=== PATIENT | female | born 1975 | race Caucasian/White ===

== ENCOUNTER 2017-06-18 16:13 | Day surgery (SDC) | payer OTHER ==
[~2017-06-18] VITALS: Ht 154.9 cm; Wt 53.4 kg
[2017-06-18] MEDS ORDERED: LACTATED RINGERS 1,000 ML IV SCH (16:28)
[2017-06-18 16:41] VITALS: BP 138/88
[2017-06-18] MEDS ORDERED: PLEASE ENTER HEIGHT AND WEIGHT MC SCH (17:00)
[2017-06-18] MEDS ORDERED: [UNRECOGNIZED DRUG - REMARK] (17:08)
[2017-06-18] MEDS ORDERED: prenatal vitamin (17:08)
[2017-06-18 17:10] LABS: HEMOGLOBIN 14.5 g/dL (11.7-16.4); WHITE BLOOD COUNT 7.6 x10^3/uL (3.4-10)
[2017-06-18] MEDS ORDERED: MIDAZOLAM 1 MG/ML, 2ML ONE (17:38)
[2017-06-18] MEDS ORDERED: FENTANYL PF 250 MCG/5ML ONE (17:39)
[2017-06-18] MEDS ORDERED: SILVER NITRATE STICK TP ONE (17:40)
[2017-06-18] MEDS ORDERED: OXYTOCIN 10 UNITS/ML, 1ML ONE (17:40)
[2017-06-18] MEDS ORDERED: METHYLERGONOVINE 0.2 MG/ML IM ONE (17:40)
[2017-06-18] MEDS ORDERED: MISOPROSTOL 200 MCG TABLET ONE (17:40)
[2017-06-18] MEDS ORDERED: ONDANSETRON 2MG/ML, 2ML ONE (17:46)
[2017-06-18] MEDS ORDERED: CEFAZOLIN 1,000 MG ONE (17:46)
[2017-06-18] MEDS ORDERED: DEXAMETHASONE 4 MG/ML, 1ML ONE (17:46)
[2017-06-18] MEDS ORDERED: PROPOFOL 10 MG/ML, 20ML ONE (17:46)
[2017-06-18] MEDS ORDERED: LIDOCAINE GEL 2%, 5ML ONE (17:47)
[2017-06-18] MEDS ORDERED: PHENYLEPHRINE 10 MG/ML ONE (17:53)
[2017-06-18] MEDS ORDERED: OXYcodone 5 MG/5 ML ORAL.SOL UDC PO PRN (18:00)
[2017-06-18] MEDS ORDERED: PROMETHAZINE 25 MG/ML, 1ML IV PRN (18:00)
[2017-06-18] MEDS ORDERED: ACETAMINOPHEN 325 MG TABLET PO PRN (18:00)
[2017-06-18] MEDS ORDERED: HYDROcodone/APAP 7.5-325MG/15ML UDC PO PRN (18:00)
[2017-06-18] MEDS ORDERED: ONDANSETRON 2MG/ML, 2ML IVPush PRN (18:00)
[2017-06-18] MEDS ORDERED: MEPERIDINE/PF 25MG/0.5ML IVPush PRN (18:00)
[2017-06-18] MEDS ORDERED: HYDROmorphone 1 MG/ML, 1ML IV PRN (18:00)
[2017-06-18] MEDS ORDERED: MIDAZOLAM 1 MG/ML, 2ML IV PRN (18:00)
[2017-06-18] MEDS ORDERED: FENTANYL PF 100 MCG/2ML IV PRN (18:00)
[2017-06-18] MEDS ORDERED: KETOROLAC 30 MG/1 ML ONE (18:41)
[2017-06-18] MEDS ORDERED: KETOROLAC 30 MG/1 ML IVPush ONE (19:00)
[2017-06-18] MEDS ORDERED: IBUP200T48 PO (21:58)
[2017-06-18] MEDS ORDERED: OXYC-302 PO (21:59)
== END 2017-06-18 22:20 | disposition home or self-care (01) ==
LOC: OR 16:13 → 4NOR 19:45 → OR 22:20
PROVIDERS: ATTEND Obstetrics & Gynecology
DX: O02.1 Missed abortion (principal); Z3A.01 Less than 8 weeks gestation of pregnancy; Z88.0 Allergy status to penicillin; Z98.890 Other specified postprocedural states
CPT/HCPCS: 36415; 59820; 85025; 86850; 86900; 88305; J0690; J1100; J1885; J2210; J2250; J2370; J2405; J2704; J3010; J2590

== ENCOUNTER 2018-06-14 20:26 | Outpatient (CLI) | payer OTHER ==
[~2018-06-14] VITALS: Ht 154.9 cm; Wt 61.4 kg
[~2018-06-14 20:26] MED LIST: IBUP200T49 PO; OXYC-302 PO; [UNRECOGNIZED DRUG - REMARK]; prenatal vitamin
[2018-06-14] MEDS ORDERED: DIPHENHYDRAMINE 25 MG CAPSULE ONE (21:21)
[2018-06-14] MEDS ORDERED: ACETAMINOPHEN 325 MG TABLET ONE (21:21)
[2018-06-14] MEDS ORDERED: DIPHENHYDRAMINE 25 MG CAPSULE PO PRN (21:30)
[2018-06-14] MEDS ORDERED: ACETAMINOPHEN 325 MG TABLET PO ONE (21:30)
[2018-06-14 21:52] VITALS: BP 123/82
== END 2018-06-14 21:30 | disposition home or self-care (01) ==
LOC: LDOP 20:26
PROVIDERS: ATTEND Obstetrics & Gynecology
DX: O26.893 Other specified pregnancy related conditions, third trimester (principal); Z3A.38 38 weeks gestation of pregnancy; R10.9 Unspecified abdominal pain
CPT/HCPCS: 59025; 99211; Q0163; G0463

== ENCOUNTER 2018-06-21 05:44 | Inpatient (IN) | payer OTHER ==
[~2018-06-21] VITALS: Ht 154.9 cm; Wt 62.3 kg
[2018-06-21 06:00] VITALS: BP 135/80
[2018-06-21] MEDS ORDERED: D5%-LACTATED RINGERS 1,000 ML IV SCH (06:12)
[2018-06-21] MEDS ORDERED: OXYTOCIN 30U/ 0.9% NaCL 500ML 500 ML IV ONE (06:12)
[2018-06-21] MEDS ORDERED: NEWBORN KIT ONE (06:18)
[2018-06-21] MEDS ORDERED: METOCLOPRAMIDE 5 MG/ML, 2ML IVPush PRN (06:30)
[2018-06-21] MEDS ORDERED: TERBUTALINE 1 MG/ML, 1ML IVPush PRN ×2 (06:30)
[2018-06-21] MEDS ORDERED: ONDANSETRON 2MG/ML, 2ML IVPush PRN (06:30)
[2018-06-21] MEDS ORDERED: FENTANYL PF 100 MCG/2ML IV PRN (06:30)
[2018-06-21] MEDS ORDERED: SODIUM CITRATE/CITRIC ACID 30 ML UDC PO PRN (06:30)
[2018-06-21] MEDS ORDERED: ALUMINUM/MAG/SIMETHICONE 30 ML UDC PO PRN (06:30)
[2018-06-21] MEDS ORDERED: TERBUTALINE 1 MG/ML, 1ML SQ PRN (06:30)
[2018-06-21] MEDS ORDERED: FENTANYL PF 100 MCG/2ML IVPush PRN (06:30)
[2018-06-21] MEDS ORDERED: CALCIUM CARBONATE 500 MG TAB.CHEW PO PRN ×2 (06:30→17:30)
[2018-06-21] MEDS ORDERED: FENTANYL PF 100 MCG/2ML ONE (06:38)
[2018-06-21] MEDS: LACTATED RINGERS 1,000 ML IV SCH ×4 (06:40→15:31)
[2018-06-21] MEDS ORDERED: OXYTOCIN 30U/ 0.9% NaCL 500ML 500 ML ONE (06:50)
[2018-06-21] MEDS ORDERED: LIDOCAINE/PF 1%, 30ML ONE (06:50)
[2018-06-21] MEDS ORDERED: MISOPROSTOL 200 MCG TABLET ONE (06:50)
[2018-06-21 07:11] LABS: BASOPHILS # (AUTO) 0.02 x10^3/uL (0-0.1); BASOPHILS % (AUTO) 0 % (0-1); EOSINOPHILS # (AUTO) 0.16 x10^3/uL (0-0.4); EOSINOPHILS % (AUTO) 2 % (1-7); LYMPHOCYTES # (AUTO) 1.48 x10^3/uL (1-3.4); LYMPHOCYTES % (AUTO) 18 % (22-44); MD NO; MEAN CORPUSCULAR HEMOGLOBIN 27.8 pg (27.0-34.8); MEAN CORPUSCULAR HGB CONC 32.8 g/dL (32.4-35.8); MEAN CORPUSCULAR VOLUME 84.5 fL (80-100); MEAN PLATELET VOLUME 7.5 fL (7.4-10.4); MONOCYTES # (AUTO) 0.45 x10^3/uL (0.2-0.8); MONOCYTES % (AUTO) 5 % (2-9); NEUTROPHILS % (AUTO) 75 % (42-75); PLATELET COUNT 227 x10^3/uL (130-400); RED BLOOD COUNT 4.43 x10^6/uL (3.82-5.3)
[2018-06-21] MEDS ORDERED: FENTANYL/BUPIV./NS/PF 250 ML EPIDCONT SCH (09:03)
[2018-06-21] MEDS ORDERED: FENTANYL/BUPIV./NS/PF 250 ML EPIDCONT ONE (09:17)
[2018-06-21] MEDS ORDERED: BUPIVACAINE 0.25% ONE (09:28)
[2018-06-21] MEDS: OXYTOCIN 30U/ 0.9% NaCL 500ML 500 ML IV SCH (17:13)
[2018-06-21] MEDS ORDERED: OXYcodone IR 5MG TABLET PO PRN ×2 (17:30)
[2018-06-21] MEDS ORDERED: MAGNESIUM HYDROXIDE 8%, 30ML UDC PO PRN (17:30)
[2018-06-21] MEDS ORDERED: MISOPROSTOL 200 MCG TABLET PO PRN (17:30)
[2018-06-21] MEDS ORDERED: ACETAMINOPHEN 325 MG TABLET PO PRN (17:30)
[2018-06-21] MEDS ORDERED: ONDANSETRON 2MG/ML, 2ML IV PRN (17:30)
[2018-06-21] MEDS ORDERED: IBUPROFEN 600 MG TABLET ONE (18:01)
[2018-06-21] MEDS: IBUPROFEN 600 MG TABLET PO PRN (18:02)
[2018-06-21 19:30] VITALS: BP 107/72
[2018-06-22 00:57] LABS: BASOPHILS # (AUTO) 0.01 x10^3/uL (0-0.1); BASOPHILS % (AUTO) 0 % (0-1); EOSINOPHILS # (AUTO) 0.08 x10^3/uL (0-0.4); EOSINOPHILS % (AUTO) 1 % (1-7); LYMPHOCYTES # (AUTO) 1.78 x10^3/uL (1-3.4); LYMPHOCYTES % (AUTO) 16 % (22-44); MD NO; MEAN CORPUSCULAR HEMOGLOBIN 28.7 pg (27.0-34.8); MEAN CORPUSCULAR HGB CONC 33.7 g/dL (32.4-35.8); MEAN CORPUSCULAR VOLUME 85.2 fL (80-100); MEAN PLATELET VOLUME 7.2 fL (7.4-10.4); MONOCYTES # (AUTO) 0.58 x10^3/uL (0.2-0.8); MONOCYTES % (AUTO) 5 % (2-9); NEUTROPHILS # (AUTO) 8.99 x10^3/uL (1.8-6.8); NEUTROPHILS % (AUTO) 79 % (42-75); PLATELET COUNT 187 x10^3/uL (130-400); RED BLOOD COUNT 3.94 x10^6/uL (3.82-5.3); RED CELL DISTRIBUTION WIDTH 16.6 % (9.6-15.2)
[2018-06-22 01:37] VITALS: BP 108/73
[2018-06-22] MEDS: IBUPROFEN 600 MG TABLET PO PRN ×3 (03:05→20:03)
[2018-06-22] MEDS: OXYTOCIN 30U/ 0.9% NaCL 500ML 500 ML IV SCH ×2 (03:13→13:13)
[2018-06-22 04:02] VITALS: BP 133/84
[2018-06-22 07:15] VITALS: BP 113/80
[2018-06-22] MEDS: DOCUSATE 100 MG CAPSULE PO PRN (09:19)
[2018-06-22] MEDS: PRENATAL VIT/IRON/FA 1 EACH TABLET PO SCH (09:19)
[2018-06-22 12:00] VITALS: BP 118/79
[2018-06-22 16:10] VITALS: BP 132/85
[2018-06-22 20:00] VITALS: BP 114/75
[2018-06-23 08:30] VITALS: BP 122/78
[2018-06-23] MEDS: PRENATAL VIT/IRON/FA 1 EACH TABLET PO SCH (09:00)
[2018-06-23] MEDS ORDERED: IBUP-1222 PO (09:09)
[2018-06-23] MEDS: IBUPROFEN 600 MG TABLET PO PRN (09:11)
[2018-06-23] MEDS: DOCUSATE 100 MG CAPSULE PO PRN (09:11)
== END 2018-06-23 10:50 | disposition home or self-care (01) | DRG 807 ==
LOC: LDOP 05:44 → LDIP 06:22 → 2NW 19:35
PROVIDERS: ADMIT Obstetrics & Gynecology; ATTEND Obstetrics & Gynecology
PROC: 10E0XZZ Delivery of Products of Conception, External Approach (ICD-10-PCS; principal; 2018-06-22)
PROC: 3E0R3BZ Introduction of Anesthetic Agent into Spinal Canal, Percutaneous Approach (ICD-10-PCS; 2018-06-22)
PROC: 00HU33Z Insertion of Infusion Device into Spinal Canal, Percutaneous Approach (ICD-10-PCS; 2018-06-22)
PROC: 10907ZC Drainage of Amniotic Fluid, Therapeutic from Products of Conception, Via Natural or Artificial Opening (ICD-10-PCS; 2018-06-22)
DX: O24.420 Gestational diabetes mellitus in childbirth, diet controlled (principal); Z37.0 Single live birth; Z3A.39 39 weeks gestation of pregnancy; Z80.0 Family history of malignant neoplasm of digestive organs; Z82.49 Family history of ischemic heart disease and other diseases of the circulatory system; O34.13 Maternal care for benign tumor of corpus uteri, third trimester; D25.9 Leiomyoma of uterus, unspecified; Z88.0 Allergy status to penicillin
CPT/HCPCS: 36415; 82947; 82962; 85025; 86850; 86900; G0378; J3010; J3490; J2590; J7120